=== PATIENT | female | born 1960 | race Caucasian/White ===

== ENCOUNTER 2018-01-31 16:14 | Emergency (ER) | payer BC, OTHER ==
[2018-01-31 17:40] LABS: Absolute Lymphocytes (CBC) 1.9 K/uL (0.7-4.9); Absolute Monocytes 0.7 K/uL (0.1-1.3); Absolute Neutrophil 4.4 K/uL (1.8-8.0); Basophils % 1.1 % (0-1.3); Eosinophils % 4.2 % (0-4.4); Hematocrit 40.3 % (36.0-45.0); Lymphocytes % 26.4 % (15.3-44.8); MCH 31.1 pg (27.0-35.0); MCV 91.1 fL (80-100); MPV 8.1 fL (7.6-11.3); RBC Red Blood Cell Count 4.42 M/uL (3.86-4.86)
[2018-01-31 17:46] LABS: Protime INR 0.97
--- NOTE | 2018-01-31 18:03 | RAD REPORT ---
EXAM DESCRIPTION: RAD - Chest Single View - 01/31/2018 5:56 pm CLINICAL HISTORY: CHEST PAIN Chest pain. COMPARISON: No comparisons FINDINGS: Portable technique limits examination quality. The lungs are grossly clear. The heart is normal in size. No displaced fractures. IMPRESSION: No acute intrathoracic process suspected.
[2018-01-31 18:12] LABS: ALT/SGPT 30 U/L (12-78); AST/SGOT 21 U/L (15-37); Albumin 3.7 g/dL (3.4-5.0); Alkaline Phosphatase 103 U/L (45-117); BUN Blood Urea Nitrogen 11 mg/dL (7-18); Bicarbonate 34 mmol/L (21-32); Bilirubin Direct < 0.1 mg/dL (0-0.2); Bilirubin Total 0.3 mg/dL (0.2-1.0); CKMB Creatine Kinase MB < 1.0 ng/mL (0.3-3.6); Creatine Phosphokinase 50 U/L (26-192); Glucose Level 90 mg/dL (74-106); Magnesium 2.4 mg/dL (1.8-2.4); NT PRO-BNP 123 pg/mL (<125); Potassium 3.7 mmol/L (3.5-5.1); Protein, Total 7.8 g/dL (6.4-8.2); Sodium Level 141 mmol/L (136-145)
--- NOTE | 2018-01-31 18:28 | ER ---
Nurse's Notes [facility] Name: Hallie Arriaza Age: 57 yrs Sex: Female : 1960 Arrival Date: 01/31/2018 Time: 16:20 Bed 7 Private MD: Nash Piña T Diagnosis: Hypertensive heart disease;Weakness Presentation: 01/31 16:26 Presenting complaint: Patient states: "My BP was high when I went to the dentist. I aj1 rechecked it at work and it was still high. I waited and after lunch it was 154/90. Went to Dr. Piña's office and in the past hour I got a pain under my shoulder blade" States that office staff checked her blood pressure and told her she should just come to the emergency room. Denies CP, SOB, palpitations. Transition of care: patient was not received from another setting of care. Onset of symptoms was January 31, 2018. Risk Assessment: Do you want to hurt yourself or someone else? Patient reports no desire to harm self or others. Initial Sepsis Screen: Does the patient meet any 2 criteria? No. Patient's initial sepsis screen is negative. Does the patient have a suspected source of infection? No. Patient's initial sepsis screen is negative. Care prior to arrival: None. 16:26 Method Of Arrival: Ambulatory aj1 16:26 Acuity: DANITA 3 aj1 Triage Assessment: 16:31 General: Appears in no apparent distress. comfortable, Behavior is calm, cooperative, aj1 appropriate for age. Pain: Complains of pain in anterior aspect of left shoulder and posterior aspect of left shoulder Pain radiates to back Pain currently is 8 out of 10 on a pain scale. Neuro: Level of Consciousness is awake, alert, obeys commands. Cardiovascular: Denies chest pain, palpitations, shortness of breath, syncope, vomiting, Patient's skin is warm and dry. Respiratory: Airway is patent Respiratory effort is even, unlabored, Respiratory pattern is regular, symmetrical. Derm: Skin is pink, warm \\T\\ dry. normal. Historical: - Allergies: 16:31 Penicillins; aj1 16:31 Phenobarbital; aj1 16:31 Codeine; aj1 16:31 Keflex; aj1 - Home Meds: 16:31 Seema Oral [Active]; Singulair Oral [Active]; aj1 - PMHx: 16:31 None; aj1 - PSHx: 16:31 Knee surgery; Tonsillectomy; aj1 - Immunization history:: Flu vaccine is not up to date. - Social history:: Smoking status: Patient/guardian denies using tobacco. - Ebola Screening: : Patient denies travel to an Ebola-affected area in the 21 days before illness onset. Screenin:55 Abuse screen: Denies threats or abuse. Denies injuries from another. Nutritional sv screening: No deficits noted. Tuberculosis screening: No symptoms or risk factors identified. Fall Risk None identified. Assessment: 16:55 General: Appears in no apparent distress. comfortable, well developed, Behavior is sv calm, cooperative, appropriate for age. Pain: Complains of pain in left subscapular area Pain currently is 8 out of 10 on a pain scale. Pain began today Is intermittent. Neuro: Level of Consciousness is awake, alert, obeys commands, Oriented to person, place, time, situation, Moves all extremities. Full function Gait is steady, Speech is normal. Neuro: Reports dizziness, lightheadedness for the past couple of days. Cardiovascular: Reports left sided chest pain that occurred earlier today but subsided. Heart tones S1 S2 present Capillary refill < 3 seconds is brisk in bilateral fingers Patient's skin is warm and dry. Pulses are 3+ in right radial artery and left radial artery Rhythm is sinus rhythm. Respiratory: Respiratory effort is even, unlabored, Respiratory pattern is regular, symmetrical, Breath sounds are clear bilaterally. Denies shortness of breath. Derm: Skin is pink, warm \\T\\ dry. Musculoskeletal: Range of motion: intact in all extremities. 17:41 Reassessment: Patient appears in no apparent distress at this time. No changes from hb previously documented assessment. Patient and/or family updated on plan of care and expected duration. Pain level reassessed. Patient is alert, oriented x 3, equal unlabored respirations, skin warm/dry/pink. 18:15 Reassessment: Patient appears in no apparent distress at this time. No changes from hb previously documented assessment. Patient and/or family updated on plan of care and expected duration. Pain level reassessed. Patient is alert, oriented x 3, equal unlabored respirations, skin warm/dry/pink. Vital Signs: 16:31 BP 157 / 84; Pulse 70; Resp 18; Temp 98.2(TE); Pulse Ox 99% on R/A; Weight 81.65 kg aj1 (R); Height 5 ft. 5 in. (165.10 cm) (R); Pain 8/10; 17:30 BP 135 / 71; Pulse 56 MON; Resp 19; Pulse Ox 97% on R/A; sv 18:15 BP 140 / 74; Pulse 65 MON; Resp 20; Pulse Ox 97% on R/A; sv 19:12 BP 148 / 78; Pulse 63; Resp 18; Pulse Ox 97% on R/A; tl2 16:31 Body Mass Index 29.95 (81.65 kg, 165.10 cm) aj1 17:30 Sinus bradycardia sv 18:15 Sinus Rhythm sv ED Course: 16:20 Patient arrived in ED. mr 16:20 Nash Piña MD is Private Physician. mr 16:30 Triage completed. aj1 16:31 Arm band placed on Patient placed in waiting room, Patient notified of wait time. aj1 16:50 EKG done, by gameroom technician. reviewed by Reymundo Landon MD. sm3 16:51 Ethel Sosa, ISABELLE is Primary Nurse. sv 16:55 Patient has correct armband on for positive identification. Placed in gown. Bed in low sv position. Call light in reach. Adult w/ patient. radiation monitor on. Pulse ox on. NIBP on. Door closed. Warm blanket given. Head of bed elevated. 17:27 Troponin (emerg Dept Use Only) Sent. sv 17:27 Ptt, Activated Sent. sv 17:27 PT-INR Sent. sv 17:28 Reymundo Landon MD is Attending Physician. kdr 17:28 NT PRO-BNP Sent. sv 17:28 Magnesium Sent. sv 17:28 LFT's Sent. sv 17:28 CPK Sent. sv 17:28 Ckmb Sent. sv 17:28 CBC with Diff Sent. sv 17:28 Basic Metabolic Panel Sent. sv 17:30 Initial lab(s) drawn, by me, sent to lab. Inserted saline lock: 20 gauge in right sm4 forearm, using aseptic technique. Blood collected. 17:40 ED physician to see patient. sv 17:52 X-ray(s) taken. sv 17:56 XRAY Chest (1 view) In Process Unspecified. EDMS 17:56 X-ray completed. Portable x-ray completed in exam room. Patient tolerated procedure tm4 well. 18:27 Nash Piña MD is Referral Physician. kdr 19:07 Report given to Floresita WALTON and Lisbeth WALTON. sv 19:19 No provider procedures requiring assistance completed. IV discontinued, intact, tl1 bleeding controlled, No redness/swelling at site. Pressure dressing applied. Administered Medications: 18:32 Drug: Lisinopril 20 mg Route: PO; hb 19:20 Follow up: Response: No adverse reaction; Marked relief of symptoms; Blood pressure is tl1 lowered Outcome: 18:27 Discharge ordered by MD. kdr 19:19 Discharged to home ambulatory, with family. tl1 19:19 Condition: good 19:19 Discharge instructions given to patient, Instructed on discharge instructions, follow up and referral plans. medication usage, Demonstrated understanding of instructions, follow-up care, medications, Prescriptions given X 1. 19:22 Patient left the ED. tl1 Signatures: Dispatcher [employer] EDMS Shannon Correia RN RN aj1 Ethel Sosa RN RN Reymundo Landon MD MD [facility] Sarah Dee mr Saad, Lillian tm4 Lisbeth Kowalski, RN RN tl1 Jena Izquierdo RN RN Floresita Cannon RN RN tl2 Liset Lemos sm3 Rodney Calderón, RN RN sm4 Corrections: (The following items were deleted from the chart) 18:15 18:15 BP 140 / 74; Pulse 65bpm; Resp 20bpm; Pulse Ox 97% RA; sv sv
--- NOTE | 2018-01-31 18:28 | EDPHYS ---
Physician Documentation [facility] Name: Hallie Arriaza Age: 57 yrs Sex: Female : 1960 Arrival Date: 01/31/2018 Time: 16:20 Bed 7 Private MD: Nash Piña T ED Physician Reymundo Landon HPI: 01/31 18:34 This 57 yrs old Female presents to ER via Ambulatory with complaints of High kdr Blood Pressure, Shoulder Pain. 18:34 The patient has elevated blood pressure and discovered this Work. States that she has kdr been feeling vaguely off for the last few days. Nothing focal. Was noted on several occasions today to be hypertensive around 150 SBP. Historical: - Allergies: 16:31 Penicillins; aj1 16:31 Phenobarbital; aj1 16:31 Codeine; aj1 16:31 Keflex; aj1 - Home Meds: 16:31 Seema Oral [Active]; Singulair Oral [Active]; aj1 - PMHx: 16:31 None; aj1 - PSHx: 16:31 Knee surgery; Tonsillectomy; aj1 - Immunization history:: Flu vaccine is not up to date. - Social history:: Smoking status: Patient/guardian denies using tobacco. - Ebola Screening: : Patient denies travel to an Ebola-affected area in the 21 days before illness onset. ROS: 18:34 Constitutional: Negative for fever, chills, and weight loss, Eyes: Negative for injury, kdr pain, redness, and discharge, ENT: Negative for injury, pain, and discharge, Neck: Negative for injury, pain, and swelling, Cardiovascular: Negative for chest pain, palpitations, and edema, Respiratory: Negative for shortness of breath, cough, wheezing, and pleuritic chest pain, Abdomen/GI: Negative for abdominal pain, nausea, vomiting, diarrhea, and constipation, Back: Negative for injury and pain, : Negative for injury, bleeding, discharge, and swelling, MS/Extremity: Negative for injury and deformity, Skin: Negative for injury, rash, and discoloration, Neuro: Negative for headache, weakness, numbness, tingling, and seizure activity. Psych: Negative for depression, anxiety, suicide ideation, homicidal ideation, and hallucinations, Allergy/Immunology: Negative for hives, rash, and allergies, Endocrine: Negative for neck swelling, polydipsia, polyuria, polyphagia, and marked weight changes, Hematologic/Lymphatic: Negative for swollen nodes, abnormal bleeding, and unusual bruising. Exam: 18:34 Constitutional: This is a well developed, well nourished patient who is awake, alert, kdr and in no acute distress. Head/Face: Normocephalic, atraumatic. Eyes: Pupils equal round and reactive to light, extra-ocular motions intact. Lids and lashes normal. Conjunctiva and sclera are non-icteric and not injected. Cornea within normal limits. Periorbital areas with no swelling, redness, or edema. Neck: Trachea midline, no thyromegaly or masses palpated, and no cervical lymphadenopathy. Supple, full range of motion without nuchal rigidity, or vertebral point tenderness. No Meningismus. Chest/axilla: Normal chest wall appearance and motion. Nontender with no deformity. No lesions are appreciated. Cardiovascular: Regular rate and rhythm with a normal S1 and S2. No gallops, murmurs, or rubs. Normal PMI, no JVD. No pulse deficits. Respiratory: Lungs have equal breath sounds bilaterally, clear to auscultation and percussion. No rales, rhonchi or wheezes noted. No increased work of breathing, no retractions or nasal flaring. Abdomen/GI: Soft, non-tender, with normal bowel sounds. No distension or tympany. No guarding or rebound. No evidence of tenderness throughout. Back: No spinal tenderness. No costovertebral tenderness. Full range of motion. Skin: Warm, dry with normal turgor. Normal color with no rashes, no lesions, and no evidence of cellulitis. MS/ Extremity: Pulses equal, no cyanosis. Neurovascular intact. Full, normal range of motion. Neuro: Awake and alert, GCS 15, oriented to person, place, time, and situation. Cranial nerves II-XII grossly intact. Motor strength 5/5 in all extremities. Sensory grossly intact. Cerebellar exam normal. Normal gait. Psych: Awake, alert, with orientation to person, place and time. Behavior, mood, and affect are within normal limits. Vital Signs: 16:31 BP 157 / 84; Pulse 70; Resp 18; Temp 98.2(TE); Pulse Ox 99% on R/A; Weight 81.65 kg aj1 (R); Height 5 ft. 5 in. (165.10 cm) (R); Pain 8/10; 17:30 BP 135 / 71; Pulse 56 MON; Resp 19; Pulse Ox 97% on R/A; sv 18:15 BP 140 / 74; Pulse 65 MON; Resp 20; Pulse Ox 97% on R/A; sv 19:12 BP 148 / 78; Pulse 63; Resp 18; Pulse Ox 97% on R/A; tl2 16:31 Body Mass Index 29.95 (81.65 kg, 165.10 cm) aj1 17:30 Sinus bradycardia sv 18:15 Sinus Rhythm sv MDM: 18:23 Data reviewed: vital signs. kdr 18:25 ED course: HEART Score 1 - <1.7% of MACE in next 30 days. kdr 18:27 Patient medically screened. kdr 01/31 17:10 Order name: Basic Metabolic Panel; Complete Time: 18:19 sv 01/31 17:10 Order name: CBC with Diff; Complete Time: 18:19 sv 01/31 17:10 Order name: Ckmb; Complete Time: 18:19 sv 01/31 17:10 Order name: CPK; Complete Time: 18:19 sv 01/31 17:10 Order name: LFT's; Complete Time: 18:19 sv 01/31 17:10 Order name: Magnesium; Complete Time: 18:19 sv 01/31 17:10 Order name: NT PRO-BNP; Complete Time: 18:19 sv /12 17:10 Order name: PT-INR; Complete Time: 18:19 sv 12 17:10 Order name: Ptt, Activated; Complete Time: 18:19 sv 01/31 17:10 Order name: Troponin (emerg Dept Use Only); Complete Time: 18:19 sv 01/31 17:10 Order name: XRAY Chest (1 view); Complete Time: 18:19 sv 12 17:10 Order name: EKG; Complete Time: 17:11 sv 07/12 17:20 Order name: Urine Dipstick--Ancillary (enter results) ag 01/31 17:10 Order name: Cardiac monitoring; Complete Time: 17:27 sv 12 17:10 Order name: EKG - Nurse/Tech; Complete Time: 17:11 sv 01/31 17:10 Order name: IV Saline Lock; Complete Time: 17:27 sv 01/31 17:10 Order name: Labs collected and sent; Complete Time: 17:27 sv 01/31 17:10 Order name: O2 Per Protocol; Complete Time: 17:37 sv 01/31 17:10 Order name: O2 Sat Monitoring; Complete Time: 17:27 sv 01/31 17:10 Order name: Urine Dipstick-Ancillary (obtain specimen); Complete Time: 17:11 sv Administered Medications: 18:32 Drug: Lisinopril 20 mg Route: PO; hb 19:20 Follow up: Response: No adverse reaction; Marked relief of symptoms; Blood pressure is tl1 lowered Disposition: 01/31/18 18:27 Discharged to Home. Impression: Hypertensive heart disease, Weakness. - Condition is Stable. - Discharge Instructions: Fatigue, Hypertension, [id number], Weakness, [id number]. - Prescriptions for Lisinopril 20 mg Oral Tablet - take 1 tablet by ORAL route once daily; 20 tablet. - Medication Reconciliation Form, Thank You Letter form. - Follow up: Nash Piña MD; When: 2 - 3 days; Reason: If symptoms return, Further diagnostic work-up, Recheck today's complaints, Continuance of care, Re-evaluation by your physician. - Problem is new. - Symptoms have improved. Signatures: Dispatcher [employer] EDShannon Holbrook RN RN aj1 Ethel Sosa RN RN sv Reymundo Landon MD MD [facility] Lisbeth Kowalsik RN RN tl1 Jena Izquierdo RN RN Corrections: (The following items were deleted from the chart) 19:22 18:27 01/31/2018 18:27 Discharged to Home. Impression: Hypertensive heart disease; tl1 Weakness. Condition is Stable. Forms are Medication Reconciliation Form, Thank You Letter, Antibiotic Education, Prescription Opioid Use. Follow up: Nash Piña; When: 2 - 3 days; Reason: If symptoms return, Further diagnostic work-up, Recheck today's complaints, Continuance of care, Re-evaluation by your physician. Problem is new. Symptoms have improved. kdr
[2018-01-31 18:34] LABS: Urine Blood TRACE (NEG); Urine Glucose NEGATIVE (NEG); Urine Protein NEGATIVE (NEG); Urine Specific Gravity <1.005 (1.005-1.030)
[2018-01-31] MEDS ORDERED: LISINOPRIL 20 MG TAB ONE (18:34)
--- NOTE | 2018-02-02 10:33 | EKG ---
Test Date: 2018-01-31 Test Time: 16:44:34 Rope Coiling Machine Operator: QUINTIN MEASUREMENT RESULTS: Intervals: Rate: 66 FL: 140 QRSD: 78 QT: 392 QTc: 410 [place]: P: 63 FL: 140 QRS: 13 T: 44 INTERPRETIVE STATEMENTS: Normal sinus rhythm Normal ECG No previous ECG available for comparison Electronically Signed On 02-02-18 10:27:48 CDT by Rene Lo
== END 2018-01-31 19:22 | disposition home or self-care (01) ==
LOC: ER 16:14
DX: I11.9 Hypertensive heart disease without heart failure (principal); R53.1 Weakness; Z88.1 Allergy status to other antibiotic agents; Z88.5 Allergy status to narcotic agent; Z88.0 Allergy status to penicillin; Z88.8 Allergy status to other drugs, medicaments and biological substances
CPT/HCPCS: 36415; 71045; 80048; 80076; 81003; 82550; 82553; 83735; 83880; 84484; 85025; 85610; 85730; 93005; 99285